=== PATIENT | female | born 1970 | race Two or more races ===

== ENCOUNTER 2021-12-16 20:20 | Emergency (ER) | payer MEDICAID ==
[~2021-12-16] VITALS: Ht 160 cm; Wt 83.0 kg
[2021-12-16 22:42] LABS: Basophils # (auto) 0.1 10 ^3/uL (0-0.2); Basophils % (auto) 0.6 % (0.0-2.0); Eosinophils # (auto) 0.1 10 ^3/uL (0-0.8); Eosinophils % (auto) 1.6 % (0.0-7.0); Lymphocytes # (auto) 1.7 10 ^3/uL (0.4-5.4); Lymphocytes % (auto) 19.1 % (10.0-50.0); Mean Corpuscular Hemoglobin 27.2 pg (28.0-32.0); Mean Corpuscular Hgb Conc. 32.6 g/dL (32.0-36.0); Mean Corpuscular Volume 83.5 fL (80.0-100.0); Monocytes # (auto) 0.5 10 ^3/uL (0-1.3); Monocytes % (auto) 5.2 % (0.0-12.0); Neutrophils # (auto) 6.4 10 ^3/uL (1.6-8.6); Neutrophils % (auto) 73.5 % (37.0-80.0); Red Cell Distribution Width 14.7 % (11.8-14.3); White Blood Cell 8.7 10^3/uL (4.4-10.8)
[2021-12-16 23:00] LABS: Albumin 3.8 g/dL (3.4-5.0); Calcium 9.3 mg/dL (8.5-10.1); Potassium 4.1 mmol/L (3.5-5.1)
[2021-12-16 23:04] LABS: Bilirubin, Total 0.5 mg/dL (0.2-1.0); Total Protein 7.7 g/dL (6.4-8.2)
[2021-12-17 05:15] VITALS: BP 125/86
[2021-12-17] MEDS ORDERED: METR500T PO (05:45)
[2021-12-17] MEDS ORDERED: cefTRIAXone W LIDOCAINE 1 GM IM IM ONE (05:45)
[2021-12-17] MEDS ORDERED: CIPR-173 PO (05:45)
[2021-12-17] MEDS ORDERED: cefTRIAXone SOD 1,000 MG VL ONE (05:56)
== END 2021-12-17 06:05 | disposition home or self-care (01) ==
LOC: ER 20:20
DX: K52.9 Noninfective gastroenteritis and colitis, unspecified (principal)
CPT/HCPCS: 36415; 71045; 74176; 80053; 83690; 84484; 85025; 93005; 96372; 99285; J0696